=== PATIENT | male | born 1985 | race Caucasian/White ===

== ENCOUNTER 2019-05-23 08:31 | Outpatient (CLI) | payer BC ==
--- NOTE | 2019-05-23 10:50 | MRI ---
MRI OF THE LEFT WRIST WITHOUT CONTRAST: INDICATION: A 33-year-old male with a history of a closed nondisplaced fracture of the mid third of the scaphoid. The patient is experiencing left wrist pain and discomfort mostly with activities in varying positi ons of the left wrist. This has been ongoing for 3 weeks. There is no history of recent trauma or i njury to the left wrist. COMPARISON: None. TECHNIQUE: Axial T1 non-fat-sat, T2 fat-sat, PD fat-sat axial along with coronal non-fat-sat T1, coronal PD fat- sat, and fat-sat coronal blade sequence was obtained. An additional T1 STIR series was obtained of t he left wrist. FINDINGS: There is no visible fracture involving the scaphoid. Bone marrow signal intensity appears normal wit hout evidence of osteonecrosis. There is very slight increased T2 signal involving the volar band of the scapholunate ligament likely related to a mild scapholunate sprain. No full-thickness disruptio n is evident. The interosseous and dorsal band appear intact. The lunotriquetral ligament are intac t. The extrinsic ligaments are intact. The remaining carpal bones demonstrate a normal marrow signa l intensity. No wrist effusion is noted. The TFC is intact. The visualized meniscal homologue is normal-appearing. The ECU tendon appears wi thin normal limits. The remaining dorsal extensor tendons appear within normal limits. The carpal tunnel and its content s appear within normal limits. The FCR and SCU tendons appear within normal limits. The ulnar neuro vasculature appears within normal limits. IMPRESSION: 1. Mild grade I sprain involving the volar band of the scapholunate ligament. 2. No evidence for a scaphoid fracture or scaphoid osteonecrosis. POS: [facility]
== END 2019-05-23 08:32 | disposition home or self-care (01) ==
LOC: SCSMRI 08:31
PROVIDERS: ATTEND Orthopaedic Surgery Hand Surgery
DX: S62.025A Nondisplaced fracture of middle third of navicular [scaphoid] bone of left wrist, initial encounter for closed fracture (principal); S63.8X2A Sprain of other part of left wrist and hand, initial encounter